=== PATIENT | female | born 1990 | race Two or more races ===

== ENCOUNTER 2020-04-13 19:31 | Emergency (ER) | payer BC ==
[~2020-04-13] VITALS: Ht 175.3 cm; Wt 88.6 kg
[2020-04-13 20:14] VITALS: BP 138/88
[2020-04-13] MEDS ORDERED: CYCLOBENZAPRINE HCL 10 MG TABLET PO ONE (20:30)
[2020-04-13] MEDS ORDERED: KETOROLAC TROMETHAMINE 30 MG/ML VIAL IM ONE (20:30)
[2020-04-13 20:48] LABS: APPEARANCE,URINE CLEAR (CLEAR); BILIRUBIN,URINE NEGATIVE (NEGATIVE); GLUCOSE, URINE (UA) NEGATIVE (NEGATIVE); KETONES,URINE NEGATIVE (NEGATIVE); LEUKOCYTE ESTERASE ,URINE MODERATE (NEGATIVE); NITRATE,URINE NEGATIVE (NEGATIVE); OCCULT BLOOD,URINE NEGATIVE (NEGATIVE); PROTEIN,URINE NEGATIVE (NEGATIVE); UROBILINOGEN,URINE 0.2 mg/dL (<=1.0)
[2020-04-13 21:11] LABS: BACTERIA,URINE Few /HPF (None Seen); RBC,URINE None Seen /HPF (0-2); SQUAMOUS EPITHELIAL CELL,UR Few /LPF (None Seen)
== END 2020-04-13 20:44 | disposition home or self-care (01) ==
LOC: EMS 19:31
DX: M53.3 Sacrococcygeal disorders, not elsewhere classified (principal); M54.5 Low back pain; G89.29 Other chronic pain
CPT/HCPCS: 81001; 84703; 87086; 96372; 99283; J1885